=== PATIENT | female | born 1985 | race American Indian/Alaskan Native ===

== ENCOUNTER 2017-03-27 11:39 | Emergency (ER) | payer SELFPAY ==
--- NOTE | 2017-03-27 16:11 | Emergency Department Report ---
Chief Complaint: Upper Respiratory Infection Stated Complaint: SORE THROAT - HPI History of Present Illness: 31-year-old female presents with upper respiratory illness with fever, sore throat and cough. - Exam Vital Signs: Vital Signs 03/27/17 11:50 Temperature 99.2 F Pulse Rate 105 H Respiratory 16 Rate Blood Pressure 148/70 O2 Sat by Pulse 96 Oximetry MSE screening note: Focused history and physical exam performed. Due to findings the following was ordered: ED Disposition for MSE Condition: Stable Referrals: PRIMARY CARE, [Primary Care Provider] - 3-5 Days
--- NOTE | 2017-03-27 16:48 | Emergency Department Report ---
HPI - General Chief Complaint: Upper Respiratory Infection Time Seen by Provider: 03/27/17 16:44 - HPI HPI: Patient here complaining of sore throat and upper respiratory symptoms to include cough. Denies any nausea or vomiting. Denies any abdominal low back pain. Denies any difficulty breathing. Denies any chest pain. Patient reports chills with fever and took [id number] medication without any relief. ED Past Medical Hx - Past Medical History Previous Medical History?: Yes Additional medical history: thyroid - Surgical History Past Surgical History?: No - Social History Smoking Status: Never Smoker Substance Use Type: None - Medications Home Medications: Home Medications Medication Instructions Recorded Confirmed Last Taken Type Cetirizine HCl [ZyrTEC] 10 mg PO QAM #10 capsule 03/27/17 Unknown Rx Fluticasone [Flonase] 1 spray NS QDAY 10 Days #1 bottle 03/27/17 Unknown Rx Ibuprofen [Motrin] 600 mg PO Q8H PRN 4 Days #12 tablet 03/27/17 Unknown Rx guaiFENesin/CODEINE [Robitussin AC] 5 ml PO Q12H PRN #50 oral.liqd 03/27/17 Unknown Rx ED Review of Systems ROS: Stated complaint: SORE THROAT Other details as noted in HPI Physical Exam - Physical Exam Vital Signs: Vital Signs 03/27/17 11:50 Temperature 99.2 F Pulse Rate 105 H Respiratory 16 Rate Blood Pressure 148/70 O2 Sat by Pulse 96 Oximetry General: This is a 31-year-old female well-nourished well-developed in no acute distress Physical Exam: Head: Normocephalic atraumatic Ears:BIateral TM congested without erythema and loss of bony landmarks. [place] EAC with normal exam. No mastoid bone tenderness. Mouth: Moist, no pharyngeal erythema or exudate . No tonsillar erythema or exudate. UVULA midline and oral airways patent. No peritonsillar abscess Neck: Nontender to palpate, supple, normal range of motion. No adenopathy. No c- spine tenderness. Nose: Bilateral nasal mucosa congested with clear drainage. Maxillary and frontal sinuses tender to palpate. Eyes: Sclerae and conjunctiva without injection. Bilateral pupils equal and reactive to light. Bilateral lids are normal. Normal accommodation.BEOMI Lungs: Clear to auscultate bilaterally, no rhonchi wheezes or rales. Normal work of breathing and no chest wall tenderness CV: S1, S2. Regular rate and rhythm negative murmur. Capillary refill is less than 3 seconds Skin: Clean dry and intact, no rashes or lesions Psych: Normal mood and behavior ED Course Vital Signs 03/27/17 11:50 Temperature 99.2 F Pulse Rate 105 H Respiratory 16 Rate Blood Pressure 148/70 O2 Sat by Pulse 96 Oximetry - Reevaluation(s) Reevaluation #1: 03/27/17 17:43 Patient given Motrin 800 mg and orally hydrated in ED and tolerated well. ED Medical Decision Making - Medical Decision Making ED Course:This is a 31-year-old female here reporting flulike symptoms with sore throat. She was given Motrin 800 mg in the emergency room for sore throat. Patient found to have upper respiratory with cough and congestion. This was discussed with her and she voiced understanding. Discharged home with prescription for Zyrtec Flonase, Motrin and guaifenesin with codeine and to follow up with her primary care physician and 3-5 days. Critical care attestation.: If time is entered above; I have spent that time in minutes in the direct care of this critically ill patient, excluding procedure time. 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 F/U with primary care physician as instructed Prescriptions: Cetirizine HCl [ZyrTEC] 10 mg PO QAM #10 capsule Fluticasone [Flonase] 1 spray NS QDAY 10 Days #1 bottle guaiFENesin/CODEINE [Robitussin AC] 5 ml PO Q12H PRN #50 oral.liqd PRN Reason: Cough Ibuprofen [Motrin] 600 mg PO Q8H PRN 4 Days #12 tablet PRN Reason: Pain Referrals: PRIMARY CARE, [Primary Care Provider] - 3-5 Days Forms: Work/School Release Form(ED)
[2017-03-27] MEDS ORDERED: MOTRIN PO ONE (16:51)
[2017-03-27 17:49] VITALS: BP 122/76
== END 2017-03-27 18:12 | disposition home or self-care (01) ==
LOC: ED 11:39
DX: J02.9 Acute pharyngitis, unspecified (principal); J06.9 Acute upper respiratory infection, unspecified
CPT/HCPCS: 99282